=== PATIENT | male | born 1940 | race Caucasian/White ===

== ENCOUNTER 2025-08-04 14:01 | Emergency (ER) | payer MEDICARE, BC ==
[~2025-08-04] VITALS: Ht 175.3 cm; Wt 70.3 kg
[2025-08-04 16:00] VITALS: BP 105/64
[2025-08-04] MEDS ORDERED: ACET1TAB23 PO (16:27)
[2025-08-04] MEDS ORDERED: HYDR-3972 PO (16:27)
[2025-08-04 16:39] VITALS: BP 101/68; O2SAT 98
== END 2025-08-04 16:40 | disposition home or self-care (01) ==
LOC: ER 14:05
DX: S40.011A Contusion of right shoulder, initial encounter (principal); S00.03XA Contusion of scalp, initial encounter; J45.909 Unspecified asthma, uncomplicated; Z88.7 Allergy status to serum and vaccine; W01.0XXA Fall on same level from slipping, tripping and stumbling without subsequent striking against object, initial encounter; Y93.01 Activity, walking, marching and hiking; Y92.89 Other specified places as the place of occurrence of the external cause; Y99.9 Unspecified external cause status
CPT/HCPCS: 70450; 72125; 73020; A4606; A4663